=== PATIENT | female | born 1970 | race Caucasian/White ===

== ENCOUNTER 2020-12-16 14:33 | Outpatient (CLI) | payer OTHER | END 2020-12-16 23:59 | disposition home or self-care (01) | LOC: WOUND 14:33 | PROVIDERS: ATTEND Internal Medicine | DX: E10.621 Type 1 diabetes mellitus with foot ulcer (principal); L97.511 Non-pressure chronic ulcer of other part of right foot limited to breakdown of skin; L97.521 Non-pressure chronic ulcer of other part of left foot limited to breakdown of skin; E10.65 Type 1 diabetes mellitus with hyperglycemia; L84 Corns and callosities; E03.9 Hypothyroidism, unspecified; E78.5 Hyperlipidemia, unspecified; Z98.890 Other specified postprocedural states; Z79.899 Other long term (current) drug therapy | CPT/HCPCS: 97597; 99215 ==

== ENCOUNTER 2020-12-23 14:23 | Outpatient (CLI) | payer OTHER | END 2020-12-23 23:59 | disposition home or self-care (01) | LOC: WOUND 14:23 | PROVIDERS: ATTEND Internal Medicine | DX: E10.621 Type 1 diabetes mellitus with foot ulcer (principal); L97.511 Non-pressure chronic ulcer of other part of right foot limited to breakdown of skin; L97.521 Non-pressure chronic ulcer of other part of left foot limited to breakdown of skin; L84 Corns and callosities; E78.5 Hyperlipidemia, unspecified; E03.9 Hypothyroidism, unspecified; Z79.4 Long term (current) use of insulin | CPT/HCPCS: 97597 ==

== ENCOUNTER → 2021-01-06 | Outpatient (CLI) | payer OTHER | END | disposition home or self-care (01) | LOC: WOUND 11:06 | PROVIDERS: ATTEND Internal Medicine | DX: E10.621 Type 1 diabetes mellitus with foot ulcer (principal); L97.511 Non-pressure chronic ulcer of other part of right foot limited to breakdown of skin; L84 Corns and callosities; E78.5 Hyperlipidemia, unspecified; E03.9 Hypothyroidism, unspecified; Z79.4 Long term (current) use of insulin | CPT/HCPCS: 97597 ==

== ENCOUNTER → 2021-01-13 | Outpatient (CLI) | payer OTHER | END | disposition home or self-care (01) | LOC: WOUND 08:00 | PROVIDERS: ATTEND Surgery | DX: E10.621 Type 1 diabetes mellitus with foot ulcer (principal); L97.528 Non-pressure chronic ulcer of other part of left foot with other specified severity; L84 Corns and callosities; E78.5 Hyperlipidemia, unspecified; E03.9 Hypothyroidism, unspecified; Z79.4 Long term (current) use of insulin | CPT/HCPCS: 99212 ==